=== PATIENT | male | born 1970 | race Caucasian/White ===

== ENCOUNTER 2022-05-09 05:02 | Emergency (ER) | payer MEDICAID, OTHER ==
[~2022-05-09] VITALS: Ht 180.3 cm; Wt 95.0 kg
--- NOTE | 2022-05-09 11:11 | NUR ---
Pt ambulated to the bathroom and back an approximate 100ft. Gait is steady, no complaints of dizziness.
[2022-05-09 12:03] VITALS: BP 145/80
== END 2022-05-09 12:06 | disposition home or self-care (01) ==
LOC: ER 05:06
DX: F10.120 Alcohol abuse with intoxication, uncomplicated (principal); Y90.9 Presence of alcohol in blood, level not specified; F17.200 Nicotine dependence, unspecified, uncomplicated; F12.10 Cannabis abuse, uncomplicated; Z56.0 Unemployment, unspecified
CPT/HCPCS: 99284

== ENCOUNTER 2022-05-10 00:17 | Emergency (ER) | payer OTHER | END 2022-05-10 01:23 | disposition left against medical advice (07) | LOC: ER 00:19 | DX: Z00.8 Encounter for other general examination (principal); Z53.21 Procedure and treatment not carried out due to patient leaving prior to being seen by health care provider ==

== ENCOUNTER 2022-06-04 10:34 | Emergency (ER) | payer MEDICAID ==
[~2022-06-04] VITALS: Ht 180.3 cm; Wt 90.0 kg
[2022-06-04 10:39] VITALS: BP 131/75
[2022-06-04] MEDS ORDERED: BENZ-38 PO (11:26)
[2022-06-04] MEDS ORDERED: AMOX-117 PO (11:26)
[2022-06-04] MEDS ORDERED: ALBU8HFA PO (11:26)
== END 2022-06-04 11:36 | disposition home or self-care (01) ==
LOC: ER 10:34
DX: J20.9 Acute bronchitis, unspecified (principal); F12.90 Cannabis use, unspecified, uncomplicated; Z59.00 Homelessness unspecified
CPT/HCPCS: 99283